=== PATIENT | male | born 2000 | race Caucasian/White ===

== ENCOUNTER → 2024-07-09 10:31 | Outpatient (REF) | payer BC, SELFPAY | LOC: RAD 10:31 | PROVIDERS: ATTENDING PHYSICIAN Registered Nurse | DX: R06.02 Shortness of breath (principal) | CPT/HCPCS: 71046 ==

== ENCOUNTER → 2024-10-19 17:23 | Outpatient (REF) | payer BC, SELFPAY | LOC: RAD 17:23 | PROVIDERS: ATTENDING PHYSICIAN Otolaryngology; FAMILY PHYSICIAN Registered Nurse | DX: J32.9 Chronic sinusitis, unspecified (principal) | CPT/HCPCS: 70486 ==

== ENCOUNTER → 2024-12-16 10:14 | Outpatient (REF) | payer BC, SELFPAY | LOC: RAD 10:14 | PROVIDERS: ATTENDING PHYSICIAN Registered Nurse | DX: M62.838 Other muscle spasm (principal); R51.9 Headache, unspecified | CPT/HCPCS: 72040 ==

== ENCOUNTER → 2024-12-21 10:30 | Outpatient (REF) | payer BC, SELFPAY | LOC: RAD 10:30 | PROVIDERS: ATTENDING PHYSICIAN Registered Nurse | DX: I86.1 Scrotal varices (principal) | CPT/HCPCS: 76870; 93976 ==